=== PATIENT | male | born 1965 | race African-American/Black ===

== ENCOUNTER 2017-04-25 20:21 | Emergency (ER) | payer MEDICARE, MEDICAID ==
[~2017-04-25] VITALS: Ht 193 cm; Wt 104.0 kg
[2017-04-25] MEDS ORDERED: KETOROLAC 60MG/2ML VIAL IM ONE (23:00)
[2017-04-25 23:50] VITALS: BP 141/93
== END 2017-04-25 23:50 | disposition home or self-care (01) ==
LOC: ER 20:44
DX: S90.112A Contusion of left great toe without damage to nail, initial encounter (principal); W22.8XXA Striking against or struck by other objects, initial encounter; Y93.89 Activity, other specified; Y92.89 Other specified places as the place of occurrence of the external cause; Y99.8 Other external cause status
CPT/HCPCS: 73630; 96372; 99284; J1885